=== PATIENT | male | born 1975 | race Asian ===

== ENCOUNTER → 2022-11-23 | Outpatient (CLI) | payer BC | LOC: SLEEPLAB 17:30 | PROVIDERS: ATTEND Family Medicine | DX: G47.33 Obstructive sleep apnea (adult) (pediatric) (principal); R06.83 Snoring | CPT/HCPCS: 95800 ==

== ENCOUNTER 2023-03-09 11:15 | Inpatient (IN) | payer BC ==
[2023-03-09] MEDS ORDERED: Acetaminophen 325 MG TAB ONE (11:38)
[2023-03-09] MEDS ORDERED: Cefepime 2 GM VIAL ONE (11:38)
[2023-03-09] MEDS ORDERED: Vancomycin 1 GM/200 ML (FROZEN) BAG ONE (11:38)
[2023-03-09 11:45] LABS: #Eosinphils 0.1 thou/uL (0.0-0.7); #Monocytes 1.5 thou/uL (0.11-0.59); #Neutrophils 16.9 thou/uL (1.40-6.50); %Basophils 0.2 % (0.0-1.0); %Eosinophils 0.7 % (0.0-10.0); %Lymphocytes 5.3 % (21.0-51.0); %Monocytes 7.6 % (0.0-10.0); %Neutrophils 85.4 % (42.0-75.0); Hemoglobin 14.3 g/dL (14.0-18.0); Mean Corpuscular HGB CONC 34.6 g/dL (32.0-36.0); Mean Corpuscular Hemoglobin 30.3 pg (27.0-31.0); Mean Corpuscular Volume 87.5 fl (78.0-98.0); Platelet Count 360 10x3/uL (130-400); Red Blood Cell (RBC) Count 4.72 mill/uL (4.70-6.10); White Blood Cell (WBC) Count 19.8 10x3/uL (4.8-10.8)
[2023-03-09 12:21] LABS: ALT (SGPT) 90 U/L (8-55); AST (SGOT) 37 U/L (5-34); Albumin 3.2 g/dL (3.5-5.0); Alkaline Phosphatase 154 U/L (40-110); Anion Gap 17 mmol/L (10-20); BUN (Urea Nitrogen) 33 mg/dL (8.9-20.6); Bilirubin, Total 0.5 mg/dL (0.2-1.2); Calc. Creatinine Clearance 0 mL/min (70-130); Calcium 8.7 mg/dL (7.8-10.44); Carbon Dioxide 20 mmol/L (22-29); Chloride 96 mmol/L (98-107); Estimated GFR 27; Globulin 4.7 g/dL (2.4-3.5); Glucose 103 mg/dL (70-105); Potassium 3.6 mmol/L (3.5-5.1); Protein, Total 7.9 g/dL (6.0-8.3); Sodium 129 mmol/L (136-145)
[2023-03-09] MEDS ORDERED: Senokot S 8.6-50 MG TAB PO PRN (12:58)
[2023-03-09] MEDS ORDERED: Guaifenesin DM 100-10/5 ML UDCUP PO PRN (12:58)
[2023-03-09] MEDS ORDERED: Calcium Carbonate 500 MG ChewTAB PO PRN (12:58)
[2023-03-09] MEDS ORDERED: Bisacodyl 10 MG SUPP PR PRN (12:58)
[2023-03-09] MEDS ORDERED: Vancomycin HCl 1 GM in Sodium Chloride 0.9% 250 ML 250 ML IVPB SCH (13:15)
[2023-03-09 13:45] LABS: Bacteria/HPF None Seen HPF (None Seen); Bilirubin Negative (Negative); Blood, Urine 3+ (Negative); CAUTI Indications for Culture Fever or rigors; Clarity Clear (Clear); Glucose, Urine (Dipstick) Normal (Negative); Ketone, Urine Negative (Negative); Leukocyte Negative Leu/uL (Negative); Nitrite Negative (Negative); Protein, Urine (Dipstick) 50 mg/dL (Neg-Trace); RBC/HPF 21-50 HPF (0-3); Specific Gravity, Urine 1.011 (1.002-1.036); Squamous Epithelial 0-3 HPF (0-3); Urobilinogen Normal mg/dL (Less than 2); WBC/HPF 0-3 HPF (0-3); pH, Urine 5.5 (5.0-9.0)
[2023-03-09 13:49] LABS: Urine Culture Reflex No No
[2023-03-09 14:14] LABS: SARS-CoV-2 NAA Rapid Test Not Detected (NotDetected)
[2023-03-09 14:23] LABS: HBCM Index 0.06 S/CO (0-0.79); HBSAg Index 0.23 S/CO (0-0.99); Hep A IgM AB Non-Reactive S/CO (NonReactive); Hep A IgM S/CO 0.14 S/CO (0-0.79); Hep B Surf Ag Non-Reactive S/CO (NonReactive); Hep C IgG Ab Non-Reactive S/CO (NonReactive); Hep C Index 0.08 S/CO (0-0.79); Hepatitis B Core IgM Abs Non-Reactive S/CO (NonReactive)
[2023-03-09 15:01] VITALS: BMI 27.6
[2023-03-09] MEDS: Sodium Chloride 0.9% 1,000 ML IV SCH ×2 (15:38→22:26)
[2023-03-09] MEDS ORDERED: Vancomycin HCl 750 MG in Sodium Chloride 0.9% 250 ML 250 ML IVPB SCH (17:00)
[2023-03-09] MEDS ORDERED: Vancomycin Dose by Levels Sliding Scale (Wt 71-99) FS SCH (17:00)
[2023-03-09 17:05] LABS: SARS-CoV-2 NAA Rapid Test Not Detected (NotDetected)
[2023-03-09] MEDS: Cefepime 1 GM in Sodium Chloride 0.9% 100 ML IVPB SCH (18:27)
[2023-03-09] MEDS: Albuterol 200 PUFF (6.7GM INHALER) INH SCH (19:19)
[2023-03-09 20:20] LABS: Legionella Urinary Ag Negative (Negative); Strep pneumo Urine Ag NEGATIVE (NEGATIVE)
[2023-03-09 21:03] LABS: Potassium, Urine 10.4 mmol/L
[2023-03-10] MEDS: Sodium Chloride 0.9% 1,000 ML IV SCH ×4 (00:40→22:07)
[2023-03-10] MEDS: Cefepime 1 GM in Sodium Chloride 0.9% 100 ML IVPB SCH (06:00)
[2023-03-10 06:53] LABS: #Monocytes 1.3 thou/uL (0.11-0.59); #Neutrophils 11.6 thou/uL (1.40-6.50); %Basophils 0.1 % (0.0-1.0); %Lymphocytes 7.8 % (21.0-51.0); %Neutrophils 82.1 % (42.0-75.0); Hemoglobin 12.9 g/dL (14.0-18.0); Mean Corpuscular HGB CONC 34.3 g/dL (32.0-36.0); Mean Corpuscular Hemoglobin 30.4 pg (27.0-31.0); Mean Corpuscular Volume 88.7 fl (78.0-98.0); Mean Platelet Volume 8.7 fL (7.4-10.4); Platelet Count 306 10x3/uL (130-400); RBC Distribution Width 12.3 % (11.5-14.5); Red Blood Cell (RBC) Count 4.24 mill/uL (4.70-6.10); White Blood Cell (WBC) Count 14.1 10x3/uL (4.8-10.8)
[2023-03-10 07:13] LABS: ALT (SGPT) 81 U/L (8-55); AST (SGOT) 36 U/L (5-34); Albumin 2.7 g/dL (3.5-5.0); Alkaline Phosphatase 146 U/L (40-110); Anion Gap 12 mmol/L (10-20); BUN (Urea Nitrogen) 35 mg/dL (8.9-20.6); Bilirubin, Total 0.4 mg/dL (0.2-1.2); Calc. Creatinine Clearance 41 mL/min (70-130); Calcium 8.3 mg/dL (7.8-10.44); Carbon Dioxide 24 mmol/L (22-29); Chloride 104 mmol/L (98-107); Estimated GFR 29; Globulin 4.4 g/dL (2.4-3.5); Glucose 115 mg/dL (70-105); Potassium 3.6 mmol/L (3.5-5.1); Protein, Total 7.1 g/dL (6.0-8.3); Sodium 136 mmol/L (136-145)
[2023-03-10] MEDS: Albuterol 200 PUFF (6.7GM INHALER) INH SCH ×3 (08:02→18:57)
[2023-03-10] MEDS ORDERED: GASTROGRAFIN 30 ML BOT ONE (09:25)
[2023-03-10] MEDS ORDERED: Piperacillin/Tazobactam 3.375 GM in Sodium Chloride 0.9% 100 ML IVPB SCH (13:00)
[2023-03-10 13:39] LABS: HIV (1/2) Antibody/Antigen Non-Reactive (NonReactive)
[2023-03-10] MEDS: Piperacillin/Tazobactam 3.375 GM in Sodium Chloride 0.9% 100 ML IVPB SCH (17:48)
[2023-03-10] MEDS: Preparation H Ointment 28 GM TUBE TOP SCH (20:03)
[2023-03-11] MEDS: Piperacillin/Tazobactam 3.375 GM in Sodium Chloride 0.9% 100 ML IVPB SCH ×2 (01:39→08:35)
[2023-03-11] MEDS: Sodium Chloride 0.9% 1,000 ML IV SCH ×2 (01:58→12:54)
[2023-03-11] MEDS: Albuterol 200 PUFF (6.7GM INHALER) INH SCH ×3 (06:22→18:33)
[2023-03-11 08:29] LABS: #Monocytes 1.6 thou/uL (0.11-0.59); #Neutrophils 14.7 thou/uL (1.40-6.50); %Basophils 0.2 % (0.0-1.0); %Lymphocytes 6.1 % (21.0-51.0); %Monocytes 8.9 % (0.0-10.0); %Neutrophils 82.4 % (42.0-75.0); Hemoglobin 12.7 g/dL (14.0-18.0); Mean Corpuscular HGB CONC 33.3 g/dL (32.0-36.0); Mean Corpuscular Hemoglobin 30.3 pg (27.0-31.0); Mean Corpuscular Volume 90.9 fl (78.0-98.0); Mean Platelet Volume 8.5 fL (7.4-10.4); Platelet Count 307 10x3/uL (130-400); RBC Distribution Width 12.4 % (11.5-14.5); Red Blood Cell (RBC) Count 4.19 mill/uL (4.70-6.10); White Blood Cell (WBC) Count 17.9 10x3/uL (4.8-10.8)
[2023-03-11] MEDS: Multivitamin W/ Minerals 1 TAB PO SCH (08:35)
[2023-03-11] MEDS: Preparation H Ointment 28 GM TUBE TOP SCH ×2 (08:36→20:34)
[2023-03-11 09:16] LABS: ALT (SGPT) 95 U/L (8-55); AST (SGOT) 36 U/L (5-34); Albumin 2.9 g/dL (3.5-5.0); Alkaline Phosphatase 192 U/L (40-110); Anion Gap 13 mmol/L (10-20); BUN (Urea Nitrogen) 25 mg/dL (8.9-20.6); Bilirubin, Total 0.9 mg/dL (0.2-1.2); Calc. Creatinine Clearance 49 mL/min (70-130); Calcium 8.4 mg/dL (7.8-10.44); Carbon Dioxide 27 mmol/L (22-29); Chloride 104 mmol/L (98-107); Estimated GFR 37; Globulin 4.5 g/dL (2.4-3.5); Glucose 119 mg/dL (70-105); Protein, Total 7.4 g/dL (6.0-8.3); Sodium 140 mmol/L (136-145)
[2023-03-11 15:41] LABS: Chlam.trachomatis by PCR,Urine Not Detected (NotDetected); GC N.gonorrhoeae PCR,UrineVOID Not Detected (NotDetected)
[2023-03-11] MEDS: Acetaminophen 325 MG TAB PO PRN (20:33)
[2023-03-12 00:49] LABS: Bacteria/HPF None Seen HPF (None Seen); Bilirubin Negative (Negative); Blood, Urine 3+ (Negative); Clarity Clear (Clear); Glucose, Urine (Dipstick) Normal (Negative); Ketone, Urine Negative (Negative); Leukocyte Negative Leu/uL (Negative); Nitrite Negative (Negative); Protein, Urine (Dipstick) Negative (Neg-Trace); RBC/HPF 0-3 HPF (0-3); Squamous Epithelial None Seen HPF (0-3); Urobilinogen Normal mg/dL (Less than 2); WBC/HPF 0-3 HPF (0-3); pH, Urine 5.5 (5.0-9.0)
[2023-03-12 06:06] LABS: #Basophils 0.1 thou/uL (0.0-0.2); #Monocytes 1.7 thou/uL (0.11-0.59); %Basophils 0.4 % (0.0-1.0); %Eosinophils 0.2 % (0.0-10.0); %Lymphocytes 9.6 % (21.0-51.0); %Monocytes 8.6 % (0.0-10.0); %Neutrophils 77.1 % (42.0-75.0); Hemoglobin 12.3 g/dL (14.0-18.0); Mean Corpuscular HGB CONC 34.1 g/dL (32.0-36.0); Mean Corpuscular Hemoglobin 30.1 pg (27.0-31.0); Mean Corpuscular Volume 88.5 fl (78.0-98.0); Mean Platelet Volume 8.7 fL (7.4-10.4); Platelet Count 295 10x3/uL (130-400); RBC Distribution Width 12.6 % (11.5-14.5); Red Blood Cell (RBC) Count 4.08 mill/uL (4.70-6.10); White Blood Cell (WBC) Count 19.4 10x3/uL (4.8-10.8)
[2023-03-12 06:27] LABS: ALT (SGPT) 97 U/L (8-55); AST (SGOT) 42 U/L (5-34); Albumin 2.6 g/dL (3.5-5.0); Alkaline Phosphatase 206 U/L (40-110); Anion Gap 13 mmol/L (10-20); BUN (Urea Nitrogen) 18 mg/dL (8.9-20.6); Calc. Creatinine Clearance 73 mL/min (70-130); Calcium 8.2 mg/dL (7.8-10.44); Carbon Dioxide 24 mmol/L (22-29); Chloride 102 mmol/L (98-107); Estimated GFR 59; Globulin 4.3 g/dL (2.4-3.5); Glucose 112 mg/dL (70-105); Potassium 3.3 mmol/L (3.5-5.1); Protein, Total 6.9 g/dL (6.0-8.3); Sodium 136 mmol/L (136-145)
[2023-03-12] MEDS: Albuterol 200 PUFF (6.7GM INHALER) INH SCH ×3 (07:50→18:44)
[2023-03-12] MEDS: Multivitamin W/ Minerals 1 TAB PO SCH (09:05)
[2023-03-12] MEDS: Preparation H Ointment 28 GM TUBE TOP SCH ×2 (09:05→23:29)
[2023-03-12 14:16] LABS: Ref Lab Test Ordered antisynthetase; Reference Lab Name LABCORP
[2023-03-12] MEDS: Potassium Chloride 20 MEQ TAB PO SCH ×2 (15:05→18:20)
[2023-03-12] MEDS: Acetaminophen 325 MG TAB PO PRN (16:51)
[2023-03-13 06:10] LABS: Mean Corpuscular HGB CONC 33.6 g/dL (32.0-36.0); Mean Corpuscular Hemoglobin 30.2 pg (27.0-31.0); Mean Corpuscular Volume 89.9 fl (78.0-98.0); Mean Platelet Volume 8.7 fL (7.4-10.4); Platelet Count 265 10x3/uL (130-400); RBC Distribution Width 12.6 % (11.5-14.5); Red Blood Cell (RBC) Count 3.97 mill/uL (4.70-6.10); White Blood Cell (WBC) Count 22.5 10x3/uL (4.8-10.8)
[2023-03-13 06:24] LABS: Delete Auto Diff?? YES; Manual Diff?? YES
[2023-03-13 06:37] LABS: Iron 19 ug/dL (65-175); Iron Binding Capacity, Total 74 mcg/dL (261-462)
[2023-03-13 06:45] LABS: ALT (SGPT) 87 U/L (8-55); AST (SGOT) 36 U/L (5-34); Albumin 2.6 g/dL (3.5-5.0); Alkaline Phosphatase 180 U/L (40-110); Anion Gap 12 mmol/L (10-20); BUN (Urea Nitrogen) 16 mg/dL (8.9-20.6); Bilirubin, Total 0.7 mg/dL (0.2-1.2); Calc. Creatinine Clearance 90 mL/min (70-130); Calcium 8.1 mg/dL (7.8-10.44); Carbon Dioxide 24 mmol/L (22-29); Chloride 101 mmol/L (98-107); Estimated GFR 76; Globulin 4.4 g/dL (2.4-3.5); Glucose 108 mg/dL (70-105); Potassium 3.7 mmol/L (3.5-5.1); Sodium 133 mmol/L (136-145)
[2023-03-13] MEDS: Albuterol 200 PUFF (6.7GM INHALER) INH SCH ×3 (07:28→18:52)
[2023-03-13] MEDS: Multivitamin W/ Minerals 1 TAB PO SCH (08:43)
[2023-03-13] MEDS: Preparation H Ointment 28 GM TUBE TOP SCH ×2 (08:43→20:49)
[2023-03-13 09:11] LABS: Band 7 % (5-11); Lymphocytes 5 % (21-51); Metamyelocyte 2 % (0-0); Monocytes 8 % (0-10); Neutrophil 78 % (42-75)
[2023-03-13 13:14] LABS: EBV VCA IgM <36.0 U/mL (0.0-35.9)
[2023-03-13 15:13] LABS: Ferritin 3193.64 ng/mL (22-322)
[2023-03-13 16:53] LABS: Reference Lab Name LABCORP
[2023-03-13 16:55] LABS: Ref Lab Test Ordered RICKETTSIAL AB
[2023-03-13 16:58] LABS: Reference Lab Name LABCORP
[2023-03-13 16:59] LABS: Reference Lab Name LABCORP
[2023-03-13 17:00] LABS: Ref Lab Test Ordered Coxiella b. AB
[2023-03-13] MEDS: Acetaminophen 325 MG TAB PO PRN (18:48)
[2023-03-14] MEDS: Albuterol 200 PUFF (6.7GM INHALER) INH SCH ×2 (06:59→14:06)
[2023-03-14] MEDS: Multivitamin W/ Minerals 1 TAB PO SCH (08:58)
[2023-03-14] MEDS: Preparation H Ointment 28 GM TUBE TOP SCH ×2 (08:58→20:25)
[2023-03-14] MEDS ORDERED: Albuterol 200 PUFF (6.7GM INHALER) INH PRN (14:37)
[2023-03-14] MEDS ORDERED: Phenazopyridine HCl 100 MG TAB PO PRN (16:17)
[2023-03-14] MEDS ORDERED: Ketorolac Tromethamine 30 MG/ML VIAL IVP SCH (16:30)
[2023-03-14 17:29] LABS: ANA Symphony (Qualitative) Negative (Negative); ANA Symphony (Quantitative) 0.4 Ratio (< 0.7 Negative); Rheumatoid Factor IgM Antibody 1.2 IU/mL (<3.5 Negative); dsDNA IgG Antibody 3.3 IU/mL (<10 Negative)
[2023-03-15 06:27] LABS: #Basophils 0.1 thou/uL (0.0-0.2); %Basophils 0.4 % (0.0-1.0); %Eosinophils 0.2 % (0.0-10.0); %Lymphocytes 9.6 % (21.0-51.0); %Monocytes 5.1 % (0.0-10.0); %Neutrophils 81.1 % (42.0-75.0); Hemoglobin 11.8 g/dL (14.0-18.0); Mean Corpuscular HGB CONC 33.3 g/dL (32.0-36.0); Mean Corpuscular Volume 90.1 fl (78.0-98.0); Mean Platelet Volume 8.9 fL (7.4-10.4); Platelet Count 281 10x3/uL (130-400); RBC Distribution Width 12.7 % (11.5-14.5); Red Blood Cell (RBC) Count 3.93 mill/uL (4.70-6.10); White Blood Cell (WBC) Count 19.7 10x3/uL (4.8-10.8)
[2023-03-15 06:55] LABS: Anion Gap 13 mmol/L (10-20); BUN (Urea Nitrogen) 17 mg/dL (8.9-20.6); Calc. Creatinine Clearance 117 mL/min (70-130); Carbon Dioxide 22 mmol/L (22-29); Chloride 99 mmol/L (98-107); Estimated GFR 105; Glucose 98 mg/dL (70-105); Potassium 3.6 mmol/L (3.5-5.1); Sodium 130 mmol/L (136-145)
[2023-03-15] MEDS: Multivitamin W/ Minerals 1 TAB PO SCH (09:09)
[2023-03-15] MEDS: predniSONE 20 MG TAB PO SCH (09:10)
[2023-03-15] MEDS: Preparation H Ointment 28 GM TUBE TOP SCH ×2 (09:11→21:07)
[2023-03-15 13:38] LABS: Albumin-Ur 44.3 % (.); Alpha 1 - Ur 14.2 % (.); Alpha 2 - Ur 18.4 % (.); Beta-Ur 4.5 % (.); Gamma-Ur 18.6 % (.); M-Spike,% Not Observed % (Not Observed); Protein, Urine 26.3 mg/dL (Not Estab.)
[2023-03-15 15:49] LABS: Complement-C4 36.2 mg/dL (15-53)
[2023-03-15 18:09] LABS: Bacteria/HPF None Seen HPF (None Seen); Bilirubin Negative (Negative); Blood, Urine 3+ (Negative); Clarity Clear (Clear); Glucose, Urine (Dipstick) Normal (Negative); Ketone, Urine Negative (Negative); Leukocyte Negative Leu/uL (Negative); Nitrite Negative (Negative); Protein, Urine (Dipstick) 20 mg/dL (Neg-Trace); Specific Gravity, Urine 1.016 (1.002-1.036); Squamous Epithelial 0-3 HPF (0-3); Urobilinogen Normal mg/dL (Less than 2); WBC/HPF 0-3 HPF (0-3)
[2023-03-15 21:10] VITALS: TEMP 98.2
[2023-03-16] MEDS: Preparation H Ointment 28 GM TUBE TOP SCH (08:09)
[2023-03-16] MEDS: Multivitamin W/ Minerals 1 TAB PO SCH (08:09)
[2023-03-16] MEDS: predniSONE 20 MG TAB PO SCH (08:09)
[2023-03-16 08:30] VITALS: BP 111/71
[2023-03-16 16:36] LABS: Cytoplasmic (C-ANCA) <1:20 titer (Neg:<1:20); Myeloperoxidase AutoAbs <0.2 units (0.0-0.9); Perinuclear (P-ANCA) <1:20 titer (Neg:<1:20); Proteinase-3 AutoAbs Less than 0.2 units (0.0-0.9)
[2023-03-16 17:12] LABS: %CD4 (Helper/Inducer) 52.2 % (30.8-58.5); Absolute CD4 1044 /uL (359-1519); Total Lymphocyte 9 % (Not Estab.)
[2023-03-17 12:18] LABS: Bartonella henselae IgG Negative titer (Neg:<1:320); Bartonella henselae IgM Negative titer (Neg:<1:100); Bartonella quintana IgG Negative titer (Neg:<1:320); Bartonella quintana IgM Negative titer (Neg:<1:100)
[2023-03-17 14:12] LABS: QuantiFERON-TB Gold Plus Negative (Negative)
[2023-03-17 15:14] LABS: A/G Ratio 0.4 (0.7-1.7); Albumin 1.9 g/dL (2.9-4.4); Alpha 1 0.7 g/dL (0.0-0.4); Alpha 2 1.2 g/dL (0.4-1.0); Globulin, Total 4.9 g/dL (2.2-3.9); M-Spike Not Observed g/dL (Not Observed)
[2023-03-17 18:09] LABS: Proteinase-3 AutoAbs Less than 0.2 units (0.0-0.9)
== END 2023-03-16 13:54 | disposition home or self-care (01) | DRG 871 ==
LOC: ERS 11:15 → T4-B 12:58
PROVIDERS: ADMIT Internal Medicine; ATTEND Internal Medicine
PROC: 3E03329 Introduction of Other Anti-infective into Peripheral Vein, Percutaneous Approach (ICD-10-PCS; 2023-03-09)
PROC: 0SJB3ZZ Inspection of Left Hip Joint, Percutaneous Approach (ICD-10-PCS; principal; 2023-03-12)
DX: A41.9 Sepsis, unspecified organism (principal); J18.9 Pneumonia, unspecified organism; K83.1 Obstruction of bile duct; N17.9 Acute kidney failure, unspecified; N30.00 Acute cystitis without hematuria; N18.4 Chronic kidney disease, stage 4 (severe); E87.1 Hypo-osmolality and hyponatremia; G47.33 Obstructive sleep apnea (adult) (pediatric); D63.1 Anemia in chronic kidney disease; I12.9 Hypertensive chronic kidney disease with stage 1 through stage 4 chronic kidney disease, or unspecified chronic kidney disease; K80.50 Calculus of bile duct without cholangitis or cholecystitis without obstruction; K76.0 Fatty (change of) liver, not elsewhere classified; E87.6 Hypokalemia; R31.9 Hematuria, unspecified; M13.0 Polyarthritis, unspecified; Z20.822 Contact with and (suspected) exposure to COVID-19
CPT/HCPCS: 20610; 36415; 71045; 71250; 72148; 72195; 74176; 76705; 76770; 77002; 78226; 80048; 80053; 80074; 81001; 81003; 81015; 81374; 82085; 82164; 82306; 82436; 82550; 82570; 82607; 82728; 83516; 83520; 83540; 83550; 83605; 83615; 83970; 84133; 84145; 84155; 84156; 84165; 84166; 84300; 84550; 85025; 85046; 85379; 85652; 86037; 86038; 86060; 86140; 86160; 86200; 86225; 86308; 86361; 86480; 86611; 86664; 86665; 87040; 87070; 87081; 87086; 87385; 87389; 87449; 87491; 87497; 87591; 87633; 87798; 87899; 93005; 93306; 96365; 96366; A9537; J0692; J1650; J1885; J2543; J3370; J3370-JW; J3490; J7050; J7512; Q9963; U0002